=== PATIENT | male | born 1965 | race Caucasian/White ===

== ENCOUNTER 2017-05-02 21:07 | Emergency (ER) | payer OTHER, SELFPAY ==
[2017-05-02] MEDS ORDERED: Promethazine 25 MG TAB ONE (21:26)
[2017-05-02] MEDS ORDERED: Cephalexin 250 MG CAP ONE (21:26)
[2017-05-02] MEDS ORDERED: Benzonatate 100 MG CAP ONE (21:26)
[2017-05-02] MEDS ORDERED: predniSONE 20 MG TAB ONE (21:32)
== END 2017-05-02 21:32 | disposition home or self-care (01) ==
LOC: BURERS 21:07
DX: J20.9 Acute bronchitis, unspecified (principal); I10 Essential (primary) hypertension; F17.210 Nicotine dependence, cigarettes, uncomplicated
CPT/HCPCS: 99283; J7506

== ENCOUNTER 2017-11-03 00:05 | Emergency (ER) | payer OTHER ==
[2017-11-03] MEDS ORDERED: HYDROcodone/Acetaminophen 5/325 mg Tablet ONE (00:20)
[2017-11-03] MEDS ORDERED: Ciprofloxacin 500 MG TAB ONE (00:21)
== END 2017-11-03 00:30 | disposition home or self-care (01) ==
LOC: BURERS 00:05
DX: L03.115 Cellulitis of right lower limb (principal); I10 Essential (primary) hypertension; F17.210 Nicotine dependence, cigarettes, uncomplicated; Z79.899 Other long term (current) drug therapy
CPT/HCPCS: 99283